=== PATIENT | male | born 1990 | race Caucasian/White ===

== ENCOUNTER 2023-06-28 15:11 | Inpatient (IN) | payer MEDICAID ==
[~2023-06-28] VITALS: Ht 172.7 cm; Wt 80.7 kg
[~2023-06-28 15:11] MED LIST: BUPR-50 PO; CARI4.5C PO; LAMO-24 PO; METH54TA PO; PROP10TA73 PO
[2023-07-01] MEDS ORDERED: HALOPERIDOL 5 MG TABLET PO PRN (19:15)
[2023-07-01] MEDS: LORazepam 2 MG TABLET PO PRN (23:33)
[2023-07-01] MEDS: ZOLPIDEM TARTRATE 10 MG TABLET PO PRN (23:48)
[2023-07-01 23:56] VITALS: BP 127/86; PULSE 107; RESP 18; TEMP 98.2; O2SAT 97
[2023-07-02 02:39] VITALS: BP 127/86; PULSE 80; RESP 18; TEMP 97.6; O2SAT 98
[2023-07-02 09:52] VITALS: BP 113/64; PULSE 93; RESP 18; TEMP 97.4; O2SAT 96
[2023-07-02] MEDS ORDERED: ONDANSETRON HCL 4 MG TABLET PO PRN (15:00)
[2023-07-02] MEDS ORDERED: MAGNESIUM HYDROXIDE SUSPENSION 30 ML UDCUP PO PRN (15:00)
[2023-07-02] MEDS ORDERED: GuaiFENesin/D-METHORPHAN [SUGAR-FREE] 200-20MG/10 ML SYRUP UDCUP PO PRN (15:00)
[2023-07-02] MEDS ORDERED: LOPERAMIDE HCL 2 MG CAPSULE PO PRN (15:00)
[2023-07-02] MEDS ORDERED: MAG HYDROX/AL HYDROX/SIMETH ES 30 ML SUSPENSION UDCUP PO PRN (15:00)
[2023-07-02] MEDS ORDERED: NICOTINE 14 MG/24 HOUR PATCH TD PRN (15:00)
[2023-07-02] MEDS ORDERED: DOCUSATE SODIUM 100 MG CAPSULE PO PRN (15:00)
[2023-07-02] MEDS ORDERED: ACETAMINOPHEN 325 MG TABLET PO PRN (15:00)
[2023-07-02] MEDS ORDERED: PETROLATUM,WHITE 28 GM JELLY TP PRN (15:00)
[2023-07-02] MEDS ORDERED: ALBUTEROL SULFATE HFA 90 MCG/PUFF 8 GM INHALER IH PRN (15:00)
[2023-07-02] MEDS ORDERED: CloNIDine HCL 0.1 MG TABLET PO PRN (15:00)
[2023-07-02] MEDS: LORazepam 2 MG TABLET PO PRN (17:26)
[2023-07-02 20:35] VITALS: BP 119/74; PULSE 96; RESP 18; TEMP 97.9; O2SAT 97
[2023-07-02] MEDS: LamoTRIgine 100 MG TABLET PO SCH (21:37)
[2023-07-02] MEDS: BuPROPion HCL XL 150 MG ER TABLET PO SCH (21:37)
[2023-07-02] MEDS: ZOLPIDEM TARTRATE 10 MG TABLET PO PRN (21:40)
[2023-07-03 08:06] VITALS: BP 136/82; PULSE 103; RESP 18; TEMP 97.6; O2SAT 96
[2023-07-03 08:26] VITALS: BP 136/82; PULSE 103; RESP 18; TEMP 97.6; O2SAT 96
[2023-07-03 08:35] LABS: CHOL/HDL RATIO 6.2 (4.2-7.3); THYROID STIMULATING HORMONE 1.82 uIU/mL (0.36-3.74)
[2023-07-03] MEDS: LORazepam 2 MG TABLET PO PRN (13:15)
[2023-07-03 16:33] VITALS: BP 121/80; PULSE 99; RESP 17; TEMP 97; O2SAT 98
[2023-07-03 20:36] VITALS: BP 121/80; PULSE 99; RESP 17; TEMP 97; O2SAT 98
[2023-07-03] MEDS: BuPROPion HCL XL 150 MG ER TABLET PO SCH (20:50)
[2023-07-03] MEDS: LamoTRIgine 100 MG TABLET PO SCH (20:51)
[2023-07-03] MEDS: ZOLPIDEM TARTRATE 10 MG TABLET PO PRN (21:17)
[2023-07-04 08:43] VITALS: BP 127/71; PULSE 97; RESP 18; TEMP 97.8; O2SAT 97
[2023-07-04] MEDS ORDERED: VRAYLAR 4.5 MG PO SCH (09:00)
[2023-07-04] MEDS ORDERED: CONCERTA 54 MG PO SCH (09:00)
[2023-07-04] MEDS ORDERED: CARI4.5C PO (09:43)
[2023-07-04] MEDS ORDERED: METH54TA PO (09:43)
[2023-07-04] MEDS ORDERED: BUPR-49 PO (09:43)
[2023-07-04] MEDS ORDERED: LAMO-24 PO (09:43)
== END 2023-07-04 14:00 | disposition home or self-care (01) | DRG 753 ==
LOC: B2S 07-01 23:16
PROVIDERS: ADMIT Psychiatry & Neurology Psychiatry; ATTEND Psychiatry & Neurology Psychiatry
DX: F31.4 Bipolar disorder, current episode depressed, severe, without psychotic features (principal); E11.9 Type 2 diabetes mellitus without complications; R45.851 Suicidal ideations; I10 Essential (primary) hypertension; T44.7X2A Poisoning by beta-adrenoreceptor antagonists, intentional self-harm, initial encounter; Y92.89 Other specified places as the place of occurrence of the external cause; Z79.899 Other long term (current) drug therapy; Z88.6 Allergy status to analgesic agent; Z91.51 Personal history of suicidal behavior
CPT/HCPCS: 80061; 83036; 84443; 87081